=== PATIENT | female | born 1945 | race Hispanic/Latino ===

== ENCOUNTER 2016-10-07 12:26 | Emergency (ER) | payer MEDICARE ==
[2016-10-07 12:26] VITALS: BMI 28.0
[2016-10-07 12:57] VITALS: BP 150/80; PULSE 75; RESP 18; TEMP 98.4; O2SAT 98
--- NOTE | 2016-10-07 13:17 | ED PDOC ---
Arrival/HPI - General Chief Complaint: Lower Extremity Problem/Injury Time Seen by Provider: 10/07/16 13:09 Historian: Patient - History of Present Illness Narrative History of Present Illness (Text): 10/07/16 13:10 A 71 year old female presents to the emergency department complaining of left knee pain since yesterday. Patient denies any trauma. She notes pain to the knee with range of motion. She reports that she did lots of bending down yesterday but denies other trauma. She denies any fever, chills, chest pain, shortness of breath, or any other complaints at this time. Denies Diabetes. PMD: Dr. Guthrie Time/Duration: 24 hours Symptom Onset: Sudden Symptom Course: Unchanged Quality: Other Activities at Onset: Rest Context: Home Past Medical History - Provider Review Nursing Documentation Reviewed: Yes - Infectious Disease Hx of Infectious Diseases: None - Tetanus Immunization Tetanus Immunization: Unknown - Past Medical History Past Medical History: No Previous - Cardiac Hx Cardiac Disorders: No - Pulmonary Hx Respiratory Disorders: No - Neurological Hx Neurological Disorder: No - HEENT Hx HEENT Disorder: No - Renal Hx Renal Disorder: No - Endocrine/Metabolic Hx Endocrine Disorders: No - Hematological/Oncological Hx Blood Disorders: No - Integumentary Hx Dermatological Disorder: No - Musculoskeletal/Rheumatological Hx Musculoskeletal Disorders: No Hx Falls: No - Gastrointestinal Hx Gastrointestinal Disorders: Yes (GASTRITIS) Hx Gastroesophageal Reflux: Yes - Genitourinary/Gynecological Hx Genitourinary Disorders: No - Psychiatric Hx Depression: Yes Hx Substance Use: No - Past Surgical History Past Surgical History: No Previous Family/Social History - Physician Review Nursing Documentation Reviewed: Yes Family/Social History: Unknown Family HX Smoking Status: Former Smoker Hx Alcohol Use: Yes (WINE DAILY) Hx Substance Use: No Allergies/Home Meds Allergies/Adverse Reactions: Allergies No Known Allergies Allergy (Verified 12/21/14 21:26) Home Medications: Home Meds Medication Instructions Recorded Confirmed No Known Home Med 10/07/16 10/07/16 Review of Systems - Review of Systems Constitutional: absent: Fatigue, Weight Change, Fevers Eyes: absent: Vision Changes ENT: absent: Sinus Congestion Respiratory: absent: SOB, Cough, Sputum, Wheezing Cardiovascular: absent: Chest Pain, Palpitations, Edema, Calf Pain, DAVIDSON, Orthopnea, Syncope Gastrointestinal: absent: Abdominal Pain, Constipation, Diarrhea, Nausea, Vomiting Genitourinary Female: absent: Dysuria Musculoskeletal: Arthralgias, Other (left knee pain with movement of knee.). absent: Back Pain, Neck Pain Skin: absent: Rash Neurological: absent: Headache, Dizziness Endocrine: absent: Diaphoresis Psychiatric: absent: Depression Physical Exam Vital Signs Reviewed: Yes Vital Signs Temp Pulse Resp BP Pulse Ox 10/07/16 12:51 98.4 F 75 18 150/80 98 Temperature: Afebrile Blood Pressure: Normal Pulse: Regular Respiratory Rate: Normal Appearance: Positive for: Well-Appearing, Non-Toxic, Comfortable Pain Distress: None Mental Status: Positive for: Alert and Oriented X 3 - Systems Exam Head: Present: Atraumatic, Normocephalic Pupils: Present: PERRL Extroacular Muscles: Present: EOMI Conjunctiva: Present: Normal Mouth: Present: Moist Mucous Membranes Neck: Present: Normal Range of Motion Respiratory/Chest: Present: Clear to Auscultation, Good Air Exchange. No: Respiratory Distress, Accessory Muscle Use Cardiovascular: Present: Regular Rate and Rhythm, Normal S1, S2. No: Murmurs Abdomen: Present: Normal Bowel Sounds. No: Tenderness, Distention, Peritoneal Signs Back: Present: Normal Inspection Upper Extremity: Present: Normal Inspection. No: Cyanosis, Edema Lower Extremity: Present: NORMAL PULSES, Normal ROM, Swelling (scant swelling to the left knee), Neurovascularly Intact, Other (no skin breakage, no joint laxity). No: Edema, CALF TENDERNESS (no calf swelling or tenderness), Cyanosis , Tenderness, Erythema, Deformity, Temperature Abnormalties Neurological: Present: GCS=15, CN II-XII Intact, Speech Normal Skin: Present: Warm, Dry, Normal Color. No: Rashes Psychiatric: Present: Alert, Oriented x 3, Normal Insight, Normal Concentration Medical Decision Making ED Course and Treatment: 10/07/16 13:10 Impression: A 71 year old female with left knee pain. On physical examination the patient has scant swelling to the left knee but no pain with ROM. No fever or erythema. Differential Diagnosis include but are not limited to: DVT vs. arthritis vs. fracture Plan: -- Left Knee X-ray -- Left Lower Extremity Duplex Ultrasound -- Motrin -- Reassess and disposition Prior Visits: Notes and results from previous visits were reviewed. The patient last presented to the emergency department on 12/21/14 for evaluation of substernal chest pain. Progress Notes: 10/07/16 13:50 Left X-ray: Creator : Vinay Mccray MD COMPARISON: None. FINDINGS: BONES: Normal. No fracture. JOINTS: Normal. No osteoarthritis. JOINT EFFUSION: None. OTHER FINDINGS: None. IMPRESSION: Normal radiographs of the left knee. 10/07/16 14:40 Left Lower Extremity US: Creator : Vinay Middleton MD FINDINGS: The visualized deep venous system of the left lower extremity is sonographically normal and compressible. Normal wave forms and augmentation are seen. There is no sonographic evidence for deep venous thrombosis in the visualized segments of the left lower extremity. There is a 3.3 x 4.7 cm fluid collection in the left popliteal fossa, consistent with a Salinas's cyst. IMPRESSION: 1. No sonographic evidence for deep venous thrombosis in the visualized segments of the left lower extremity. 10/07/16 14:47 Patient with persistent knee pain. Patient ambulating around emergency department without difficulty. I have discussed the results and plan with the patient, who expresses understanding. Patient in agreement with plan to discharged home. Patient is stable for discharge. Patient was instructed to follow up with physician for persistent pain for MRI or return if symptoms worsen or new concerning symptoms arise. 10/07/16 15:11 - RAD Interpretation Radiology Orders: 10/07/16 13:09 KNEE LEFT 2 VIEWS (AP & LAT) [RAD] Stat DUPLEX LOWER EXTRM VEIN LEFT [US] Stat - Medication Orders Current Medication Orders: Discontinued Medications Ibuprofen (Motrin Tab) 600 mg PO STAT STA Stop: 10/07/16 13:10 Last Admin: 10/07/16 13:29 Dose: 600 mg Re-Assess: MAR Pain/Vitals Document 10/07/16 14:29 [facility] (Rec: 10/07/16 15:09 [id number]) Pain Reassessment Is This A Pain ReAssessment? No - Scribe Statement The provider has reviewed the documentation as recorded by the Scribjemma Montes De Oca Provider Scribe Attestation: All medical record entries made by the Scribe were at my direction and personally dictated by me. I have reviewed the chart and agree that the record accurately reflects my personal performance of the history, physical exam, medical decision making, and the department course for this patient. I have also personally directed, reviewed, and agree with the discharge instructions and disposition. Disposition/Present on Arrival - Present on Arrival Any Indicators Present on Arrival: No History of DVT/PE: No History of Uncontrolled Diabetes: No Urinary Catheter: No History of Decub. Ulcer: No History Surgical Site Infection Following: None - Disposition Have Diagnosis and Disposition been Completed?: Yes Diagnosis: Knee pain, Bakers cyst Disposition: HOME/ ROUTINE Disposition Time: 14:49 Patient Plan: Discharge Patient Problems: Current Active Problems Problem Status Onset Knee pain Acute Condition: GOOD Discharge Instructions (ExitCare): Knee Pain (ED) Additional Instructions: Follow up with PMD within 2 days. Follow-up with PMD within 10 days for MRI for persistent pain. Motrin for pain. Return to emergency department if condition worsens. Referrals: Kendrick Guthrie MD [Primary Care Provider] - Follow up with primary
--- NOTE | 2016-10-07 13:50 | RAD ---
PROCEDURE: Left Knee Radiographs. HISTORY: Pain. COMPARISON: None. FINDINGS: BONES: Normal. No fracture. JOINTS: Normal. No osteoarthritis. JOINT EFFUSION: None. OTHER FINDINGS: None. IMPRESSION: Normal radiographs of the left knee.
--- NOTE | 2016-10-07 14:38 | US ---
PROCEDURE: Left lower extremity venous US HISTORY: Leg pain and swelling. Evaluate for DVT. PHYSICIAN(S): Vinay Guthrie MD. TECHNIQUE: Duplex sonography and color-flow Doppler with graded compression were used to evaluate the deep venous system of the left lower extremity. FINDINGS: The visualized deep venous system of the left lower extremity is sonographically normal and compressible. Normal wave forms and augmentation are seen. There is no sonographic evidence for deep venous thrombosis in the visualized segments of the left lower extremity. There is a 3.3 x 4.7 cm fluid collection in the left popliteal fossa, consistent with a Salinas's cyst. IMPRESSION: 1. No sonographic evidence for deep venous thrombosis in the visualized segments of the left lower extremity.
== END 2016-10-07 15:10 | disposition home or self-care (01) ==
LOC: ED 12:26
DX: M71.22 Synovial cyst of popliteal space [Baker], left knee (principal); M25.562 Pain in left knee

== ENCOUNTER 2018-07-15 08:09 | Emergency (ER) | payer MEDICARE ==
[2018-07-15 08:21] VITALS: BMI 25.0
[2018-07-15 08:22] VITALS: TEMP 98.2
[2018-07-15] MEDS ORDERED: Lidocaine 5% Patch TD ONE (08:27)
--- NOTE | 2018-07-15 08:28 | ED PDOC ---
Arrival/HPI - General Chief Complaint: Trauma Time Seen by Provider: 07/15/18 08:17 Historian: Patient - History of Present Illness Narrative History of Present Illness (Text): 07/15/18 08:30 73 year old female, with past medical history of dyslipidemia and NKDA, presents to emergency department s/p fall last night. Patient reports she tripped and hit the edge of a chair, injuring her left side. She denies chest pain, LOC, head injury or midline tenderness. She reports using Advil and Aleve, with no significant improvement in her symptoms. She also states she applied ice to the site of bruising under left breast. She notes difficulty coughing following fall but denies any fevers, chills, headache, dizziness, chest pain, shortness of breath, nausea, vomiting, diarrhea, back pain, neck pain, or any other complaints. PMD: Time/Duration: Other (last night ) Symptom Onset: Gradual Symptom Course: Unchanged Activities at Onset: Light Context: Home Past Medical History - Provider Review Nursing Documentation Reviewed: Yes - Infectious Disease Hx of Infectious Diseases: None - Tetanus Immunization Tetanus Immunization: Unknown - Reproductive Menopause: Yes - Past Medical History Past Medical History: No Previous - Cardiac Hx Cardiac Disorders: No - Pulmonary Hx Respiratory Disorders: No - Neurological Hx Neurological Disorder: No - HEENT Hx HEENT Disorder: No - Renal Hx Renal Disorder: No - Endocrine/Metabolic Hx Endocrine Disorders: No - Hematological/Oncological Hx Blood Disorders: No - Integumentary Hx Dermatological Disorder: No - Musculoskeletal/Rheumatological Hx Musculoskeletal Disorders: No - Gastrointestinal Hx Gastrointestinal Disorders: Yes (GASTRITIS) Hx Gastroesophageal Reflux: Yes - Genitourinary/Gynecological Hx Genitourinary Disorders: No - Psychiatric Hx Depression: Yes Hx Substance Use: No - Past Surgical History Past Surgical History: No Previous Family/Social History - Physician Review Nursing Documentation Reviewed: Yes Family/Social History: Unknown Family HX Smoking Status: Former Smoker Hx Alcohol Use: Yes (WINE DAILY) Hx Substance Use: No Allergies/Home Meds Allergies/Adverse Reactions: Allergies No Known Allergies Allergy (Verified 12/21/14 21:26) Review of Systems - Physician Review All systems were reviewed & negative as marked: Yes - Review of Systems Constitutional: absent: Fevers Respiratory: Cough (difficulty/pain while coughing). absent: SOB Cardiovascular: absent: Chest Pain Gastrointestinal: absent: Abdominal Pain, Diarrhea, Nausea, Vomiting Genitourinary Female: absent: Frequency, Hematuria, Urine Output Changes Musculoskeletal: absent: Back Pain, Neck Pain Skin: Other (bruising/injury under left breast) Neurological: absent: Headache, Dizziness Physical Exam Vital Signs Reviewed: Yes Vital Signs Temp Pulse Resp BP Pulse Ox 07/15/18 08:12 98.2 F 73 20 118/94 H 96 Temperature: Afebrile Blood Pressure: Normal Pulse: Regular Respiratory Rate: Normal Appearance: Positive for: Well-Appearing, Non-Toxic, Comfortable Pain Distress: None Mental Status: Positive for: Alert and Oriented X 3 - Systems Exam Head: Present: Atraumatic, Normocephalic Pupils: Present: PERRL Extroacular Muscles: Present: EOMI Conjunctiva: Present: Normal Mouth: Present: Moist Mucous Membranes Neck: Present: Normal Range of Motion Respiratory/Chest: Present: Clear to Auscultation, Good Air Exchange, Tender to Palpation (tenderness to palpation of T6 dermatome of L axilla. Eccymoses noted to axillary region). No: Respiratory Distress, Accessory Muscle Use Cardiovascular: Present: Regular Rate and Rhythm, Normal S1, S2. No: Murmurs Abdomen: No: Tenderness, Distention, Peritoneal Signs Breast/Axillary: Present: Other (ecchymosis noted toward T6 dermatome of left chest wall. Ecchymoses noted to L breast), Tender to Palpation Back: Present: Normal Inspection Upper Extremity: Present: Normal Inspection. No: Cyanosis, Edema Lower Extremity: Present: Normal Inspection. No: Edema Neurological: Present: Speech Normal Skin: Present: Warm, Dry, Normal Color. No: Rashes Psychiatric: Present: Alert, Oriented x 3, Normal Insight, Normal Concentration Medical Decision Making ED Course and Treatment: 07/15/18 08:51 Impression: 73 year old female presents to emergency department s/p fall last night. Plan: -- X-ray ribs --Toradol --Valium --Lidoderm Patch -- Reassess and disposition Prior Visits: Notes and results from previous visits were reviewed. Progress Notes: 07/15/18 09:52 XR ribs evaluated with no evidence of fracture, PTX or pulmonary contusion. Patient reassessed and feels better desiring to go home. She is advised to follow up with her PCP. Opportunity for questions given and answered. Scripts provided. She is stable for discharge. - Scribe Statement The provider has reviewed the documentation as recorded by the Scribe Nigelbecca Dexterkamille All medical record entries made by the Scribe were at my direction and personally dictated by me. I have reviewed the chart and agree that the record accurately reflects my personal performance of the history, physical exam, medical decision making, and the department course for this patient. I have also personally directed, reviewed, and agree with the discharge instructions and disposition. Disposition/Present on Arrival - Present on Arrival Any Indicators Present on Arrival: No History of DVT/PE: No History of Uncontrolled Diabetes: No Urinary Catheter: No History of Decub. Ulcer: No History Surgical Site Infection Following: None - Disposition Have Diagnosis and Disposition been Completed?: Yes Diagnosis: Fall, Contusion of rib on left side Disposition: HOME/ ROUTINE Disposition Time: 09:49 Patient Plan: Discharge Patient Problems: Current Active Problems Problem Status Onset Contusion of rib on left side Acute Fall Acute Condition: STABLE Discharge Instructions (ExitCare): Bruised Rib (DC), Contusion (DC) Print Language: FRISIAN Additional Instructions: All medical record entries made by the Scribe were at my direction and personally dictated by me. I have reviewed the chart and agree that the record accurately reflects my personal performance of the history, physical exam, medical decision making, and the department course for this patient. I have also personally directed, reviewed, and agree with the discharge instructions and disposition. Please follow up with your PCP in 3-5 days Prescriptions: Cyclobenzaprine [Cyclobenzaprine HCl] 10 mg PO Q6H #10 tab Lidocaine 5% [Lidoderm] 1 each TP Q12 #5 patch Naproxen 500 mg PO BID #10 tab Referrals: Fco Redman MD [Primary Care Provider] - Follow up with primary Forms: Lovely (Indian)
[2018-07-15 09:24] VITALS: RESP 16
[2018-07-15 10:03] VITALS: BP 125/62; PULSE 70; O2SAT 95
--- NOTE | 2018-07-15 12:41 | RAD ---
Date of service: 07/15/2018 PROCEDURE: Radiographs of the chest and bilateral ribs HISTORY: Status post fall with rib pain; rule out fracture. COMPARISON: Comparison made with chest radiograph 12/21/2014. TECHNIQUE: Frontal radiograph of the chest and multiple oblique radiographs of the bilateral ribs were obtained. 7 views obtained. FINDINGS: RIGHT RIBS: No fracture or focal lesion visualized. LEFT RIBS: No fracture or focal lesion visualized. LUNGS: Minimal bibasilar atelectasis. PLEURA: No pneumothorax or pleural fluid. Mild biapical pleural thickening right greater than left. CARDIOVASCULAR: Normal cardiac size. No pulmonary vascular congestion. Mild aortic atherosclerotic calcification present OTHER FINDINGS: None. IMPRESSION: Minimal bibasilar atelectasis. Evidence of acute infiltrate effusion or pneumothorax.. No obvious acute displaced rib fracture. If symptoms persist or occult fracture suspected clinically consider follow-up CT scan of the chest.
== END 2018-07-15 10:02 | disposition home or self-care (01) ==
LOC: ED 08:09
DX: S20.212A Contusion of left front wall of thorax, initial encounter (principal); W01.190A Fall on same level from slipping, tripping and stumbling with subsequent striking against furniture, initial encounter
CPT/HCPCS: 71111; 96372; 99284; J1885